=== PATIENT | male | born 1985 | race Caucasian/White ===

== ENCOUNTER 2017-01-10 17:19 | Emergency (ER) | payer OTHER ==
[~2017-01-10] VITALS: Ht 180.3 cm; Wt 106.6 kg
[2017-01-10 17:25] VITALS: BP 164/95
--- NOTE | 2017-01-10 17:32 | ED GI/GU/ABDOMINAL COMPLAINT ---
History of Present Illness General Chief Complaint: Low Back Pain/Injury Stated Complaint: BACK PAIN Source: patient, old records Exam Limitations: no limitations Vital Signs & Intake/Output Vital Signs & Intake/Output Vital Signs Date Time Temp Pulse Resp B/P B/P Pulse O2 O2 Flow FiO2 Mean Ox Delivery Rate 01/10 1725 98.1 80 15 164/95 97 Room Air Room Air ED Intake and Output 01/11 0000 01/10 1200 Intake Total 0 Output Total Balance 0 Intake, Oral 0 Patient 235 lb Weight Weight Reported by Patient Measurement Method Allergies Coded Allergies: No Known Allergies (01/10/17) Reconcile Medications No Known Home Medications Triage Note: PT TO ED WITH C/C OF LLQ BLOATING/DISCOMFORT THAT X WEEK, TODAY SYMPTOMS ARE GETTING WORSE AND NOW FELES LIKE HIS WHOLE BODY IS ACHY. +NAUSEA WITHOUT VOMITING. REPORTS LBM TODAY, BUT LESS THAN USUAL. DENIES ANY BLOOD IN STOOL. Triage Nurses Notes Reviewed? yes Onset: Gradual Duration: week(s): (1), intermittent, waxing and waning Timing: recent history Quality/Severity: cramping, mild, moderate, bloatimg Severity Numbers: 5 Location: left lower quadrant Radiation: no radiation Activities at Onset: none Prior Abdominal Problems: none No Modifying Factors: none Associated Symptoms: generalized bodyaches HPI: 31-year-old male with no medical history presents to ER for evaluation complaining of a one-week history of intermittent left lower quadrant abdominal pain that he describes as a bloating discomfort associated with constipation. He states over the past one week he is now complaining of generalized body aches and lower back pain nausea however no vomiting. No change in his appetite no black or bloody stools no diarrhea. No chest pain or shortness of breath. The patient denies any recent tick or insect bites no rashes to his skin. He denies any urinary complaints no hematuria dysuria or urgency frequency. He has not sought care for the symptoms until today he has not taken anything for his symptoms (TOMMY KIRBY,SCOTTY) Past History Travel History Traveled to [place] past 21 day No Medical History Any Pertinent Medical History? 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 No (SCOTTY UP) Review of Systems Review of Systems Constitutional: Reports: see HPI. All Other Systems: Reviewed and Negative Comments Review of systems: See HPI, All other systems negative. Constitutional, no chills no fever, no malaise no weight loss HEENT: no sore throat no congestion, no ear pain Cardiovascular: No chest pain , no palpitation Skin: no rashes, no change in skin Respiratory: No dyspnea no cough no sputum no hemoptysis GI: nausea no vomiting, no diarrhea, constipation : No dysuria No hematuria, no frequency, no discharge Muscle skeletal: No joint pain, no joint swelling, no back pain, no neck pain, Neurologic: No numbness no confusion, no headache Psych: No stress no depression,. Heme/endocrine: No bruising Immunology: No lymphadenopathy (SCOTTY UP) Physical Exam Physical Exam General Appearance: well developed/nourished, alert, awake Gastrointestinal: normal bowel sounds, soft, non-tender Comments: Well-developed well-nourished person in no acute distress HEENT: Normal EENT exam; PERRL, EOMI, HEAD is atraumatic. moist mucous membranes. Neck: Supple, no lymphadenopathy, normal range of motion Back: Nontender, no CVA tenderness. Full range of motion Cardiovascular: Regular rate and rhythms no murmurs rubs Respiratory: No respiratory distress. Patient speaking in full complete sentences. Breath sounds clear to auscultation bilaterally: NO W/R/R Abdomen: Soft, nontender nondistended, no appreciable organomegaly. Normal bowel sounds. No rebound/guarding, No appreciable enlargement of the abdominal aorta, No ascites. Extremity: No edema, full range of motion of extremities Neuro: Alert oriented x3, motor sensory normal There were no obvious focal neurologic abnormalities. Skin: No appreciable rash on exposed skin, skin is warm and dry. Psych: Mood and affect is normal, memory and judgment is normal. Core Measures ACS in differential dx? No Severe Sepsis Present: No Septic Shock Present: No (SCOTTY UP) Progress Differential Diagnosis: appendicitis, biliary colic, bowel obstruction, colon cancer, diverticulitis, gastritis, hepatitis, hernia, inflamm bowel dis, pancreatitis, peptic ulcer, perforated viscous, pyelonephritis, UTI/pyelo, lYME DISEASE Plan of Care: Orders Procedure Date/time Status URINALYSIS 01/11 1740 Complete LYME TITRE 01/11 1740 Active LIPASE 01/11 1740 Complete COMPREHENSIVE METABOLIC PANEL 01/11 1740 Complete CBC WITHOUT DIFFERENTIAL 01/11 1740 Complete AMYLASE 01/11 1740 Complete Laboratory Tests 01/10/17 1820: Urine Color YEL, Urine Clarity CLEAR, Urine pH 6.0, Ur Specific Colt 1.025, Urine Protein NEG, Urine Ketones NEG, Urine Nitrite NEG, Urine Bilirubin NEG, Urine Urobilinogen 0.2, Ur Leukocyte Esterase NEG, Ur Microscopic EXAM NOT REQUIRED, Urine Hemoglobin NEG, Urine Glucose NEG 01/10/171739: Anion Gap 14, Estimated GFR > 60, BUN/Creatinine Ratio 18.0, Glucose 96, Calcium 9.8, Total Bilirubin 0.7, AST 39, ALT 80 H, Alkaline Phosphatase 73, Total Protein 8.1, Albumin 4.9, Globulin 3.2, Albumin/Globulin Ratio 1.5, Amylase 57, Lipase 64, CBC w Diff NO MAN DIFF REQ, RBC 5.22, MCV 92.6, MCH 31.7 H, RDW 12.3 , MPV 8.3, Gran % 55.9, Lymphocytes % 36.9, Monocytes % 5.9, Eosinophils % 0.9, Basophils % 0.4, Absolute Granulocytes 4.0, Absolute Lymphocytes 2.6, Absolute Monocytes 0.4, Absolute Eosinophils 0.1, Absolute Basophils 0, PUBS MCHC 34.2, Lyme Disease Antibody Pending Labs ordered old records reviewed patient denies any complaints at this time. Discussed with the patient all his lab results pending CAT scan Case discussed with Dr. Gonzalez agrees with plan On repeat evaluation patient resting in no apparent distress. I discussed with the patient at length all of their results. I had an extensive conversation regarding need for close follow up with their primary care physician this week as well as return precautions. I answered all of their questions, they feel comfortable with the plan and follow-up care. (TOMMY KIRBY,SCOTTY) Diagnostic Imaging: Viewed by Me: CT Scan. Discussed w/RAD: CT Scan. Radiology Impression: PATIENT: EDER GARVEY PRESENT AGE: 31 PATIENT ACCOUNT NO: [id number] : [birth year] LOCATION: [facility] ORDERING PHYSICIAN: SCOTTY KIRBY SERVICE DATE: 01/10/17 EXAM TYPE: CAT - CT ABD & PELVIS W/O IV CONTRAS EXAMINATION: CT ABDOMEN AND PELVIS WITHOUT CONTRAST CLINICAL INFORMATION: Left lower quadrant abdominal pain and bloating. Evaluate for diverticulitis. COMPARISON: No relevant prior studies are available for comparison. TECHNIQUE: Multidetector volumetric imaging was performed from the superior aspect of the liver through the pubic symphysis. Sagittal and coronal reformatted images were obtained on the technologist's workstation. DLP: 568.34 mGy-cm. FINDINGS: LUNG BASES: The visualized lung bases are unremarkable. LIVER, GALLBLADDER, AND BILIARY TREE: The liver is normal in size, shape, and attenuation. No focal hepatic lesion or biliary ductal dilatation is present. The gallbladder is unremarkable with no evidence of radiopaque gallstones, gallbladder wall thickening, or obvious pericholecystic inflammatory changes. PANCREAS: Unremarkable. SPLEEN: Unremarkable. There is a 1.3 cm splenule. ADRENAL GLANDS: Unremarkable. KIDNEYS AND URETERS: The kidneys are normal in size, shape, and attenuation. No hydronephrosis, hydroureter, or calculi seen. No perinephric stranding. BLADDER: Nondistended. GASTROINTESTINAL TRACT: There is no large or small bowel obstruction. There are a few scattered colonic diverticula without adjacent inflammatory change. The appendix is normal. There is no intra-abdominal free air or free fluid. ABDOMINAL WALL: There is a fat- containing right inguinal hernia. LYMPH NODES: There is no significant intra- abdominal lymphadenopathy, however evaluation is limited on this noncontrast examination. VASCULAR: The abdominal aorta is nondilated. The IVC is unremarkable. PELVIC VISCERA: The prostate and seminal vesicles are unremarkable. OSSEOUS STRUCTURES: No lytic or blastic osseous lesion. Minimal retrolisthesis of L5 on S1. IMPRESSION: 1. Mild scattered diverticulosis without adjacent inflammatory change to suggest acute diverticulitis. No large or small bowel obstruction. 2. Normal appendix. 3. No hydronephrosis or nephrolithiasis. DICTATED BY: KEM TORRES MD DATE/TIME DICTATED:01/10/171923 FIELD RADIO TECHNICIAN:ELEAZAR DATE/TIME TRANSCRIBED:01/10/171923 CONFIDENTIAL, DO NOT COPY WITHOUT APPROPRIATE AUTHORIZATION. <Electronically signed in Other Vendor System> SIGNED BY: KEM TORRES MD 01/10/171942 Initial ED EKG: none (SCOTTY UP) Departure Departure Time of Disposition: 1951 Disposition: HOME OR SELF CARE Condition: Stable Clinical Impression Primary Impression: Abdominal pain Secondary Impressions: Inguinal hernia Referrals: JULISA WASHINGTON,DANA Additional Instructions: bland diet, follow up with your pmd this week. return to the ER at anytime sooner with any concerns. Departure Forms: Customer Survey General Discharge Information Prescriptions: Current Visit Scripts No Known Home Medications (SCOTTY UP) PA/ANNEALING FURNACE OPERATOR Co-Sign Statement Statement: ED Attending supervision documentation- [] I saw and evaluated the patient. I have also reviewed all the pertinent lab results and diagnostic results. I agree with the findings and the plan of care as documented in the PA's/ANNEALING FURNACE OPERATOR's documentation. [X] I have reviewed the ED Record and agree with the PA's/ANNEALING FURNACE OPERATOR's documentation. [] Additions or exceptions (if any) to the PAs/ANNEALING FURNACE OPERATOR's note and plan are summarized below: [] (RAULITO WASHINGTON,RAFFI)
[2017-01-10 17:53] LABS: ABSOLUTE BASOPHIL COUNT 0 /CUMM (0.0-0.2); ABSOLUTE EOSINOPHIL COUNT 0.1 /CUMM (0.0-0.7); ABSOLUTE LYMPH COUNT 2.6 /CUMM (1.2-3.4); ABSOLUTE MONOCYTE COUNT 0.4 /CUMM (0.10-0.60); BASOPHIL % 0.4 % (0.0-2.0); EOSINOPHIL % 0.9 % (0-5); GRANULOCYTE % 55.9 % (42.2-75.2); HEMATOCRIT 48.3 % (42-52); MEAN CORPUSCULAR HGB 31.7 PG (27.0-31.0); MEAN CORPUSCULAR HGB CONC 34.2 G/DL (33.0-37.0); MEAN CORPUSCULAR VOLUME 92.6 FL (80.0-94.0); MEAN PLATELET VOLUME 8.3 FL (7.4-10.4); PLATELET COUNT 186 /CUMM (130-400); RBC DISTRIBUTION WIDTH 12.3 % (11.5-14.5); RED BLOOD CELL CT 5.22 /CUMM (4.70-6.10); WHITE BLOOD CELL COUNT 7.1 /CUMM (4.8-10.8)
--- NOTE | 2017-01-10 19:43 | CT SCAN REPORT ---
EXAMINATION: CT ABDOMEN AND PELVIS WITHOUT CONTRAST CLINICAL INFORMATION: Left lower quadrant abdominal pain and bloating. Evaluate for diverticulitis. COMPARISON: No relevant prior studies are available for comparison. TECHNIQUE: Multidetector volumetric imaging was performed from the superior aspect of the liver through the pubic symphysis. Sagittal and coronal reformatted images were obtained on the technologist's workstation. DLP: 568.34 mGy-cm. FINDINGS: LUNG BASES: The visualized lung bases are unremarkable. LIVER, GALLBLADDER, AND BILIARY TREE: The liver is normal in size, shape, and attenuation. No focal hepatic lesion or biliary ductal dilatation is present. The gallbladder is unremarkable with no evidence of radiopaque gallstones, gallbladder wall thickening, or obvious pericholecystic inflammatory changes. PANCREAS: Unremarkable. SPLEEN: Unremarkable. There is a 1.3 cm splenule. ADRENAL GLANDS: Unremarkable. KIDNEYS AND URETERS: The kidneys are normal in size, shape, and attenuation. No hydronephrosis, hydroureter, or calculi seen. No perinephric stranding. BLADDER: Nondistended. GASTROINTESTINAL TRACT: There is no large or small bowel obstruction. There are a few scattered colonic diverticula without adjacent inflammatory change. The appendix is normal. There is no intra-abdominal free air or free fluid. ABDOMINAL WALL: There is a fat-containing right inguinal hernia. LYMPH NODES: There is no significant intra-abdominal lymphadenopathy, however evaluation is limited on this noncontrast examination. VASCULAR: The abdominal aorta is nondilated. The IVC is unremarkable. PELVIC VISCERA: The prostate and seminal vesicles are unremarkable. OSSEOUS STRUCTURES: No lytic or blastic osseous lesion. Minimal retrolisthesis of L5 on S1. IMPRESSION: 1. Mild scattered diverticulosis without adjacent inflammatory change to suggest acute diverticulitis. No large or small bowel obstruction. 2. Normal appendix. 3. No hydronephrosis or nephrolithiasis.
== END 2017-01-10 19:55 ==
LOC: ERH 17:19
PROVIDERS: Physician Assistant Medical
DX: K40.90 Unilateral inguinal hernia, without obstruction or gangrene, not specified as recurrent (principal)
CPT/HCPCS: 86618; 74176; 81003